=== PATIENT | male | born 1980 | race Caucasian/White ===

== ENCOUNTER 2023-09-19 05:56 | Inpatient (IN) | payer BC ==
[2023-09-18 13:15] VITALS: BMI 32.1
[2023-09-19] MEDS ORDERED: EPINEPHrine 1 MG/ML VIAL ONE (06:12)
[2023-09-19] MEDS ORDERED: Thrombin 5000 UNITS/5 ML VIAL ONE (06:12)
[2023-09-19] MEDS ORDERED: Bupivacaine PF 0.5% 30 ML VIAL ONE (06:12)
[2023-09-19] MEDS ORDERED: PROPOFOL 20 ML ONE (06:15)
[2023-09-19] MEDS ORDERED: Fentanyl 250 MCG/5 ML VIAL ONE ×2 (06:15→13:02)
[2023-09-19] MEDS ORDERED: Ketamine In 0.9 % NaCl 50 MG/5 ML SYRINGE ONE (06:15)
[2023-09-19] MEDS ORDERED: Vancomycin 1 GM VIAL ONE (06:17)
[2023-09-19] MEDS ORDERED: Lidocaine 1% PF 5 ML VIAL ONE ×2 (06:25→07:04)
[2023-09-19] MEDS ORDERED: Rocuronium Bromide 10 MG/ML (10ML VIAL) ONE ×2 (06:25→07:04)
[2023-09-19] MEDS ORDERED: Sodium Chloride 0.9% 100 ML ONE ×2 (06:38→10:42)
[2023-09-19] MEDS ORDERED: CEFAZOLIN 2 GM VIAL ONE (06:38)
[2023-09-19] MEDS ORDERED: diphenhydrAMINE 50 MG/ML VIAL IVP PRN (06:46)
[2023-09-19] MEDS ORDERED: Ondansetron PF 4 MG/2 ML Vial IVP PRN (06:46)
[2023-09-19] MEDS ORDERED: HYDROcodone/Acetaminophen 7.5/325 mg Tablet PO PRN (06:46)
[2023-09-19] MEDS ORDERED: Prochlorperazine 10 MG/2 ML VIAL IM PRN (06:46)
[2023-09-19] MEDS ORDERED: Promethazine HCl 12.5 MG SUPP PR PRN (06:46)
[2023-09-19] MEDS ORDERED: Midazolam HCl 2 mg/2 ml Vial ONE (06:49)
[2023-09-19 06:53] LABS: #Eosinphils 0.1 thou/uL (0.0-0.7); #Monocytes 0.9 thou/uL (0.11-0.59); #Neutrophils 3.8 thou/uL (1.40-6.50); %Basophils 0.3 % (0.0-1.0); %Eosinophils 0.8 % (0.0-10.0); %Lymphocytes 45.7 % (21.0-51.0); %Neutrophils 42.6 % (42.0-75.0); Hematocrit 45.9 % (42.0-52.0); Hemoglobin 15.4 g/dL (14.0-18.0); Mean Corpuscular HGB CONC 33.6 g/dL (32.0-36.0); Mean Corpuscular Hemoglobin 29.9 pg (27.0-31.0); Mean Corpuscular Volume 89.1 fl (78.0-98.0); Mean Platelet Volume 10.7 fL (7.4-10.4); Platelet Count 347 10x3/uL (130-400); RBC Distribution Width 14.1 % (11.5-14.5); Red Blood Cell (RBC) Count 5.15 mill/uL (4.70-6.10); White Blood Cell (WBC) Count 8.9 10x3/uL (4.8-10.8)
[2023-09-19 06:58] LABS: PTT 30.2 sec (22.9-36.1); Prothrombin Time 13.2 sec (12.0-14.7)
[2023-09-19] MEDS ORDERED: Esmolol 100 MG/10 ML VIAL ONE ×2 (07:04→12:22)
[2023-09-19] MEDS ORDERED: Vecuronium 10 MG VIAL ONE ×2 (07:04→08:46)
[2023-09-19] MEDS ORDERED: Ondansetron PF 4 MG/2 ML Vial ONE (07:04)
[2023-09-19] MEDS ORDERED: PROPOFOL 200 MG/20 ML VIAL ONE (07:04)
[2023-09-19] MEDS ORDERED: Ketorolac Tromethamine 30 MG/ML VIAL ONE ×2 (07:04→12:25)
[2023-09-19] MEDS ORDERED: Dexamethasone 20 MG/5 ML VIAL ONE ×2 (07:04→08:46)
[2023-09-19] MEDS ORDERED: Dexmedetomidine 200 MCG/2 ML VIAL ONE (10:21)
[2023-09-19] MEDS ORDERED: Sterile Water 20 ML ONE (12:00)
[2023-09-19] MEDS ORDERED: CEFAZOLIN 1 GM VIAL ONE (12:00)
[2023-09-19] MEDS ORDERED: SUGAMMADEX SODIUM 200 MG/2 ML VIAL ONE (12:11)
[2023-09-19] MEDS ORDERED: HYDROmorphone 2 MG/ML VIAL ONE (12:13)
[2023-09-19] MEDS ORDERED: HYDROmorphone 2 MG/ML VIAL SLOW IVP PRN (12:33)
[2023-09-19] MEDS ORDERED: Morphine Sulfate 2 MG/ML SYRINGE SLOW IVP PRN (12:33)
[2023-09-19] MEDS ORDERED: Ondansetron HCl/PF 4 MG/2 ML Vial IVP PRN (12:33)
[2023-09-19] MEDS ORDERED: PACU-Morphine 4MG/ML VIAL SLOW IVP PRN (12:33)
[2023-09-19] MEDS ORDERED: Promethazine HCl 25 MG/ML VIAL IM PRN (12:33)
[2023-09-19] MEDS: Sodium Chloride 0.9% 1,000 ML IV SCH ×2 (17:50→19:51)
[2023-09-19] MEDS: CEFAZOLIN 2 GM in Sodium Chloride 0.9% 100 ML IVPB SCH ×2 (17:50→21:04)
[2023-09-19] MEDS: tiZANidine HCl 4 MG TAB PO PRN (19:50)
[2023-09-19] MEDS: HYDROcodone/Acetaminophen 10/325 mg Tablet PO PRN (22:29)
[2023-09-20] MEDS: HYDROcodone/Acetaminophen 10/325 mg Tablet PO PRN ×3 (02:55→19:04)
[2023-09-20] MEDS: Tamsulosin HCl 0.4 MG CAP PO SCH (05:35)
[2023-09-20] MEDS: Sodium Chloride 0.9% 1,000 ML IV SCH ×2 (10:48→23:19)
[2023-09-20] MEDS: Morphine 2 MG/ML VIAL SLOW IVP PRN (21:19)
[2023-09-20] MEDS: Docusate 100 MG CAP PO PRN (21:20)
[2023-09-20] MEDS: Acetaminophen/Codeine 30-300mg Tablet PO PRN (23:19)
[2023-09-21] MEDS: Acetaminophen 325 MG TAB PO PRN ×2 (03:31→16:56)
[2023-09-21] MEDS: Senokot 8.6 MG TAB PO PRN (03:32)
[2023-09-21] MEDS: Tamsulosin HCl 0.4 MG CAP PO SCH (05:44)
[2023-09-21] MEDS: HYDROcodone/Acetaminophen 10/325 mg Tablet PO PRN ×4 (05:46→20:12)
[2023-09-21] MEDS: Polyethylene Glycol 3350 17 GM Packet PO SCH (08:34)
[2023-09-21] MEDS: Acetaminophen/Codeine 30-300mg Tablet PO PRN (08:34)
[2023-09-21 11:51] LABS: Bilirubin Negative (Negative); Blood, Urine Negative (Negative); Clarity Clear (Clear); Glucose, Urine (Dipstick) Normal (Negative); Ketone, Urine Negative (Negative); Leukocyte Negative Leu/uL (Negative); Nitrite Negative (Negative); Protein, Urine (Dipstick) Negative (Neg-Trace); RBC/HPF 0-3 HPF (0-3); Specific Gravity, Urine 1.004 (1.002-1.036); Squamous Epithelial None Seen HPF (0-3); Urobilinogen Normal mg/dL (Less than 2); WBC/HPF 0-3 HPF (0-3)
[2023-09-21 11:54] LABS: Bacteria/HPF 1+ HPF (None Seen)
[2023-09-21] MEDS: Sodium Chloride 0.9% 1,000 ML IV SCH (12:55)
[2023-09-21] MEDS: Docusate 100 MG CAP PO PRN (14:36)
[2023-09-21] MEDS ORDERED: Sulfameth/Trimethoprim DS 800-160mg TAB PO SCH (18:00)
[2023-09-21] MEDS: Ciprofloxacin 500 MG TAB PO SCH (20:12)
[2023-09-21] MEDS: tiZANidine HCl 4 MG TAB PO PRN (22:15)
[2023-09-22] MEDS: Morphine 2 MG/ML VIAL SLOW IVP PRN (02:39)
[2023-09-22] MEDS: Sodium Chloride 0.9% 1,000 ML IV SCH ×2 (02:43→14:20)
[2023-09-22] MEDS: HYDROcodone/Acetaminophen 10/325 mg Tablet PO PRN (05:06)
[2023-09-22] MEDS: Tamsulosin HCl 0.4 MG CAP PO SCH (05:07)
[2023-09-22] MEDS: Ciprofloxacin 500 MG TAB PO SCH (05:07)
[2023-09-22] MEDS: Senokot 8.6 MG TAB PO PRN (10:13)
[2023-09-22] MEDS: Mineral Oil ENEMA PR SCH ×2 (10:13→16:17)
[2023-09-22] MEDS: tiZANidine HCl 4 MG TAB PO PRN (10:13)
[2023-09-22] MEDS: Polyethylene Glycol 3350 17 GM Packet PO SCH (10:13)
[2023-09-22] MEDS: Docusate 100 MG CAP PO PRN (14:26)
[2023-09-22] MEDS: Acetaminophen 325 MG TAB PO PRN (14:31)
[2023-09-22] MEDS ORDERED: Fleet Saline Enema 133 ML BOT FS PRN (20:36)
[2023-09-23] MEDS ORDERED: Ibuprofen 600 MG TAB PO SCH (04:30)
[2023-09-23] MEDS: Sodium Chloride 0.9% 1,000 ML IV SCH ×2 (05:51→10:34)
[2023-09-23] MEDS: Tamsulosin HCl 0.4 MG CAP PO SCH (05:51)
[2023-09-23 07:22] LABS: #Eosinphils 0.1 thou/uL (0.0-0.7); #Monocytes 1.5 thou/uL (0.11-0.59); %Basophils 0.2 % (0.0-1.0); %Eosinophils 0.6 % (0.0-10.0); %Lymphocytes 26.1 % (21.0-51.0); %Monocytes 14.3 % (0.0-10.0); %Neutrophils 58.4 % (42.0-75.0); Hematocrit 38.4 % (42.0-52.0); Hemoglobin 13.1 g/dL (14.0-18.0); Mean Corpuscular HGB CONC 34.1 g/dL (32.0-36.0); Mean Corpuscular Hemoglobin 30.5 pg (27.0-31.0); Mean Corpuscular Volume 89.5 fl (78.0-98.0); Platelet Count 302 10x3/uL (130-400); RBC Distribution Width 13.2 % (11.5-14.5); Red Blood Cell (RBC) Count 4.29 mill/uL (4.70-6.10); White Blood Cell (WBC) Count 10.3 10x3/uL (4.8-10.8)
[2023-09-23 07:41] LABS: Lactic Acid 0.8 mmol/L (0.5-2.2)
[2023-09-23 07:45] LABS: ALT (SGPT) 61 U/L (8-55); AST (SGOT) 51 U/L (5-34); Albumin 3.8 g/dL (3.5-5.0); Alkaline Phosphatase 114 U/L (40-110); Anion Gap 12 mmol/L (10-20); BUN (Urea Nitrogen) 9 mg/dL (8.9-20.6); Calc. Creatinine Clearance 162 mL/min (70-130); Calcium 9.3 mg/dL (7.8-10.44); Carbon Dioxide 32 mmol/L (22-29); Chloride 95 mmol/L (98-107); Estimated GFR 114; Globulin 3.9 g/dL (2.4-3.5); Glucose 102 mg/dL (70-105); Potassium 4.2 mmol/L (3.5-5.1); Protein, Total 7.7 g/dL (6.0-8.3); Sodium 135 mmol/L (136-145)
[2023-09-23] MEDS: Polyethylene Glycol 3350 17 GM Packet PO SCH (10:35)
[2023-09-23] MEDS ORDERED: Iopamidol-370 76% 500 ML MDV (1 ML CHARGE) ONE (13:44)
[2023-09-23] MEDS: Acetaminophen 325 MG TAB PO PRN (16:20)
[2023-09-23] MEDS ORDERED: Ibuprofen 200 MG TAB PO PRN (17:32)
[2023-09-24] MEDS: Tamsulosin HCl 0.4 MG CAP PO SCH (06:02)
[2023-09-24] MEDS: Sodium Chloride 0.9% 1,000 ML IV SCH (09:49)
[2023-09-24] MEDS: Polyethylene Glycol 3350 17 GM Packet PO SCH (09:51)
[2023-09-24 12:26] VITALS: BP 126/90; TEMP 98.2
== END 2023-09-24 15:00 | disposition home or self-care (01) | DRG 454 ==
LOC: SURG A 05:56 → SJJU 17:49
PROVIDERS: ADMIT Neurological Surgery; ATTEND Neurological Surgery
PROC: 0SG30AJ Fusion of Lumbosacral Joint with Interbody Fusion Device, Posterior Approach, Anterior Column, Open Approach (ICD-10-PCS; principal; 2023-09-19)
PROC: 0SG3071 Fusion of Lumbosacral Joint with Autologous Tissue Substitute, Posterior Approach, Posterior Column, Open Approach (ICD-10-PCS; 2023-09-19)
PROC: 01NB0ZZ Release Lumbar Nerve, Open Approach (ICD-10-PCS; 2023-09-19)
PROC: 01NR0ZZ Release Sacral Nerve, Open Approach (ICD-10-PCS; 2023-09-19)
DX: M43.17 Spondylolisthesis, lumbosacral region (principal); N39.0 Urinary tract infection, site not specified; M48.061 Spinal stenosis, lumbar region without neurogenic claudication; K59.00 Constipation, unspecified; M54.16 Radiculopathy, lumbar region
CPT/HCPCS: 36415; 71045; 74177; 80053; 81001; 83605; 85025; 85610; 85730; 87086; 93970; A4314; C1713; C1889; J0171; J0690; J1100; J1170; J1885; J2250; J2272; J2405; J2704; J3010; J3370; J3490; J7050; Q9967; S0020